=== PATIENT | female | born 1955 | race Caucasian/White ===

== ENCOUNTER → 2017-04-03 10:12 | Outpatient (CLI) | payer MEDICARE, BC ==
[2015-03-16 10:43] VITALS: BMI 32.6
[~2017-04-03 10:12] MED LIST: ADDERALL 20 MG20 M1 PO; ADVIL200 MG PO; ARMOUR THYROID90 MG PO; BAYER CHEWABLE81 MG PO; CLIMARA 0.0.05 MG/PA TRANSDERM; EFFEXOR XR75 MG PO; ELIQUIS2.5 MG PO; GLUCOPHAGE1000 MG PO; HYDROCODONE-APA1 TAB PO; IMITREX100 MG PO; LANTUS INSULIN10 ML SC; LATUDA40 MG PO; METFORMIN HCL500 M1 PO; NEURONTIN 300300 MG PO; PERCOCET 10/3251 TA1 PO; PRILOSEC20 MG PO; PROMETRIUM100 MG PO; VALTREX1000 MG PO; VICTOZA0.6 MG/0.1 SQ; VOLTAREN100 GM TOPICAL
== END | disposition home or self-care (01) ==
LOC: D.US 02-21 11:30
DX: M79.605 Pain in left leg (principal); M79.604 Pain in right leg

== ENCOUNTER → 2017-11-30 11:15 | Outpatient (CLI) | payer MEDICARE, BC ==
[2015-03-16 10:43] VITALS: BMI 32.6
== END | disposition home or self-care (01) ==
LOC: D.MRI 11:15
DX: M54.5 Low back pain (principal)

== ENCOUNTER 2018-02-20 05:55 | Day surgery (SDC) | payer MEDICARE, BC ==
[2018-02-19 15:23] LABS: HEMATOCRIT 38.8 % (36.0-48.0); MCH 31.7 pg (26.0-34.0); MCHC 33.5 g/dL (31.0-37.0); MCV 94.6 fL (80.0-100.0); MEAN PLATELET VOLUME 10.7 fL (7.4-10.4); RBC 4.1 10x6/uL (4.00-5.40); RDW 12.1 % (11.5-14.5); WBC 6.9 10x3/uL (4.8-10.8)
[2018-02-19 15:42] LABS: ANION GAP 8.4 mmol/L (8-16); CALCIUM 8.9 mg/dL (8.5-10.1); CARBON DIOXIDE 32.5 mmol/L (21.0-32.0); CREATININE - SERUM 1.5 mg/dL (0.6-1.3); POTASSIUM - SERUM 3.9 mmol/L (3.5-5.1)
[~2018-02-20] VITALS: Ht 172.7 cm; Wt 106.6 kg
--- NOTE | ~2018-02-20 | OP ---
PATIENT NAME: ALANA LIZAMA MEDICAL RECORD: [id number] :53 LOCATION:D.OPS ADMISSION DATE: SURGEON: SAURABH LOPEZ MD DATE OF OPERATION: 02/20/2018 PREOPERATIVE DIAGNOSES: 1. Scalp sebaceous cyst times 3. 2. Gastroesophageal reflux disease. 3. Hyperlipidemia. 4. Diabetes mellitus. 5. Hypothyroidism. 6. Peripheral neuropathy. 7. Chronic kidney disease. POSTOPERATIVE DIAGNOSES: 1. Scalp sebaceous cyst times 3. 2. Gastroesophageal reflux disease. 3. Hyperlipidemia. 4. Diabetes mellitus. 5. Hypothyroidism. 6. Peripheral neuropathy. 7. Chronic kidney disease. PROCEDURE: Excision of left scalp sebaceous cyst times 3 (1 cm, 1.5 cm, 2 cm). SURGEON: Saurabh Lopez MD HOME HEALTH ASSISTANT: Annie Paulson APRN REPORT OF PROCEDURE: The patient's left head was shaved and prepped and draped in sterile fashion. We approached the 1st sebaceous cyst, which was on the anterior aspect of the lateral scalp. An ovoid incision was made overlying this in a transverse fashion and this was 1.5 cm lesion, it was excised completely. We then approached the larger one on the posterior aspect of the left lateral scalp and a longitudinal ovoid incision was made overlying this about 2 cm in length. I was able to dissect around this mass completely, but there was some penetration of the cystic wall, which caused some spillage of sebum. The mass was eventually completely excised. Any bleeding from that space was treated with electrocautery. The smaller lesion was on the inferior aspect towards the neck and ovoid transverse incision was made overlying this lesion and this 1 cm mass was completely excised without penetration. We inspected the areas and washed them out with normal saline. Any bleeding was treated with electrocautery. We then infused a total of 10 mL of 0.25% Marcaine with epinephrine into the surrounding tissues, then closed the wounds with subcutaneous 5-0 Monocryl. COMPLICATIONS: None. CONDITION: Stable. OPERATIVE REPORT [id number] ALANA LIAZMA ANESTHESIA: General endotracheal and local. BLOOD LOSS: 30 mL. TRANSINT:[id number] Voice Confirmation ID: [id number] DOCUMENT ID: [id number] 02/20/2018 CABRERA Mclean CHRISTIAN MD at 1041 CC: [id number] DICTATION DATE: 02/20/18 0905 [employer] CHANGES RECORDS CLERK: 02/20/18 1205 [facility] [place] 02/20/18 [place] [id number] [place] [id number]
[~2018-02-20 05:55] MED LIST changes: +DOXEPIN HCL10 MG PO; +EFFEXOR XR150 MG PO; -EFFEXOR XR75 MG PO; +LIPITOR40 MG PO; +LISINOPRIL2.5 MG PO; +NORCO 7.5/325 T1 TA1 PO; +PEPCID40 MG PO; +TOUJEO SOL300 UNIT/1 SC; +ULTRAM50 MG PO; +ZANAFLEX4 MG PO
[2018-02-20 06:20] VITALS: BP 149/90; Ht 172.7 cm; Wt 106.6 kg
[2018-02-20] MEDS ORDERED: HYDROCODONE-APA1 TAB PO (09:00)
== END 2018-02-20 10:30 | disposition home or self-care (01) ==
LOC: D.OPS 05:55 → D.PAN 08:00 → D.OPS 10:30 → D.PAN 11:30 → D.OPS 11:30
PROVIDERS: Anesthesiology
DX: L72.11 Pilar cyst (principal); E11.22 Type 2 diabetes mellitus with diabetic chronic kidney disease; N18.9 Chronic kidney disease, unspecified; K21.9 Gastro-esophageal reflux disease without esophagitis; E78.5 Hyperlipidemia, unspecified; E11.42 Type 2 diabetes mellitus with diabetic polyneuropathy; E03.9 Hypothyroidism, unspecified; Z01.812 Encounter for preprocedural laboratory examination

== ENCOUNTER → 2018-06-11 14:20 | Outpatient (CLI) | payer MEDICARE, BC ==
[2018-02-20 06:20] VITALS: BMI 35.8
== END | disposition home or self-care (01) ==
LOC: D.MRI 14:20
DX: M54.2 Cervicalgia (principal)

== ENCOUNTER 2020-12-17 07:22 | Day surgery (SDC) | payer OTHER, MEDICARE ==
[2020-12-17] VITALS (11 sets, daily range): BP systolic 125–144; BP diastolic 46–79; Ht 172.7 cm; Wt 100.5 kg
[~2020-12-17] VITALS: Ht 172.7 cm; Wt 100.5 kg
[~2020-12-17 07:22] MED LIST changes: -EFFEXOR XR150 MG PO; +EFFEXOR75 MG PO; +LYRICA25 MG PO; +OZEMPIC1 MG/0.75 SQ; +TRESIBA FL100 UNIT/1 SQ
[2020-12-17 08:21] LABS: ANION GAP 10.5 mmol/L (8-16); CALCIUM 9.1 mg/dL (8.5-10.1); CARBON DIOXIDE 30.3 mmol/L (21.0-32.0); CREATININE - SERUM 1.3 mg/dL (0.6-1.3); POTASSIUM - SERUM 3.8 mmol/L (3.5-5.1)
[2020-12-17 08:31] LABS: BASOPHILS 0.7 % (0-2); EOSINOPHILS 2.4 % (0-7); HEMOGLOBIN 12.6 g/dL (12-16); LYMPHOCYTES 21.7 % (15-50); MCH 29.1 pg (26.0-34.0); MCHC 32.2 g/dL (31.0-37.0); MCV 90.3 fL (80.0-100.0); MEAN PLATELET VOLUME 9.6 fL (7.4-10.4); MONOCYTES 8.2 % (2-11); PLATELET COUNT 202 10x3/uL (130-400); RBC 4.32 10x6/uL (4.00-5.40); RDW 13.8 % (11.5-14.5); WBC 8.2 10x3/uL (4.8-10.8)
[2020-12-17] MEDS ORDERED: METANX PO (09:32)
--- NOTE | 2020-12-17 13:59 | NUR ---
1259: BLOOD SUGAR 61, ORDER OBTAINED FOR D50W. 1303: 25G D50W GIVEN. PT ALERT AND ORIENTED. 1402: BLOOD SUGAR 91. PT ALERT AND ORIENTED.
--- NOTE | 2020-12-17 20:00 | NUR ---
ALERT SITTING UP IN BED, DENIES NEEDS AT THIS TIME, REPORTS MILD PAIN TO NECK, INSTRUCTED ON USE OF SOFT C COLLAR, SEE SHIFT ASSESSMENT, CALL LIGHT IN REACH
[2020-12-18] VITALS: BP 125/55
[2020-12-18 04:00] VITALS: BP 134/63
[2020-12-18 08:17] VITALS: BP 158/77
[2020-12-18] MEDS ORDERED: MEDROL DOSE PACK4 MG PO (08:21)
--- NOTE | 2020-12-18 11:23 | NUR ---
PATIENT WITHOUT DISTRESS. TO [place] [facility].
--- NOTE | 2020-12-30 07:36 | OP ---
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 PROCEDURE: Anterior cervical diskectomy and fusion at C3-C4 with removal of osteophytes, [facility] anterior cervical plate and screws. SURGEON: Edilberto Berry MD DESCRIPTION OF PROCEDURE: After induction of general endotracheal anesthesia, the patient was positioned supine on the operating table. Neck was prepped and draped in the usual sterile fashion. A [place] dissector localized the C3-C4 interspace after infiltration of 1:100,000 epinephrine with 1% lidocaine. A transverse skin incision was carried out from the midline to the sternocleidomastoid muscle. The platysma was divided with sharp dissection using Metzenbaum scissors. I proceeded in an avascular plane medial to the carotid sheath. C3-C4 interspace was identified with fluoroscopic x-ray and spinal needle. [place] distraction pins were placed in the bodies of C3 and C4. The disk space was incised under distraction. The cartilaginous endplates were removed with curettes and pituitary rongeurs. With a microscope and [place] drill, osteophytes were drilled away posteriorly. The posterior longitudinal ligament was removed with [place] rongeurs. Following this, the dura was decompressed as well. A PEEK interbody cage was placed in the disk space under distraction. [place] pins were removed. Self-drilling screws were placed through [facility] anterior cervical plate. Locking cams were tightened down over the screw heads. Good position of the hardware was confirmed with fluoroscopic x-ray. Meticulous hemostasis was maintained throughout the wound. Wound was irrigated with copious amounts of Ancef irrigant solution. The platysma and subdermal layer closed with interrupted 4-0 Vicryl suture. Steri-Strips and benzoin were used to reapproximate the skin edges. Sterile dressing was applied to the wound. The patient was awakened in good condition and taken to recovery. All counts were reported as correct. Estimated blood loss was minimal. TRANSINT:[id number] Voice Confirmation ID: [id number] DOCUMENT ID: [id number] EDILBERTO BERRY MD at 0736 CC: [id number] DICTATION DATE: 12/29/202156 [place] OPERATOR: 12/30/20 0236 [facility] 12/18/20 [place] [id number]
== END 2020-12-18 15:11 | disposition home or self-care (01) ==
LOC: D.OPS 07:22 → D.MS 13:21 → D.OPS 12-18 15:11
PROVIDERS: Anesthesiology; ATTEND Neurological Surgery
DX: M50.20 Other cervical disc displacement, unspecified cervical region (principal); M54.12 Radiculopathy, cervical region; M25.78 Osteophyte, vertebrae; E03.9 Hypothyroidism, unspecified; K21.9 Gastro-esophageal reflux disease without esophagitis; G89.29 Other chronic pain; E78.2 Mixed hyperlipidemia; E11.40 Type 2 diabetes mellitus with diabetic neuropathy, unspecified; N18.9 Chronic kidney disease, unspecified; E11.22 Type 2 diabetes mellitus with diabetic chronic kidney disease; I12.9 Hypertensive chronic kidney disease with stage 1 through stage 4 chronic kidney disease, or unspecified chronic kidney disease